=== PATIENT | female | born 1945 | race Caucasian/White ===

== ENCOUNTER 2018-03-18 15:01 | Emergency (ER) | payer MEDICARE, OTHER ==
[~2018-03-18] VITALS: Ht 162.6 cm; Wt 65.8 kg
--- OUTSIDE RECORDS SUMMARY | ~2018-03-18 | XMS | Clinical Summary ---
Demographics + + + | Address | [address] | | | [place] [address] | + + + | Home Phone | | + + + | Preferred Language | Unknown | + + + | Marital Status | Unknown | + + + | Congregational Affiliation | Unknown | + + + | Race | Unknown | + + + | Ethnic Group | Unknown | + + + Author + + + | Author | [facility] | | | and [place] | + + + | Organization | [facility] | | | and [place] | + + + | Address | Unknown | + + + | Phone | Unavailable | + + + Care Team Providers + +------+ + | Care Weekend Anchor Name | Role | Phone | + +------+ + PP | Unavailable | + +------+ + Allergies Not on File Current Medications Not on file Active Problems Not on file Social History + +-------+ +--------+------+ | Tobacco [...] on file | | + + + Plan of Treatment + + + + + | Health Maintenance | Due Date | Last Done | Comments | + + + + + | Vaccine: | | | | | Dtap/Tdap/Td (1 - | 4 | | | | Tdap) | | | | + + + + + | Vaccine: Zoster (1 | | | | | of 2) | 5 | | | + + + + + | Vaccine: | | | | | Pneumococcal 65+ | 0 | | | | Low/Medium Risk (1 | | | | | of 2 - PCV13) | | | | + + + + + | Vaccine: Influenza | | | | | (#1) | 8 | | | + + + + + Results Not on filefrom Last 3 Months"
--- OUTSIDE RECORDS SUMMARY | ~2018-03-18 | XMS | Clinical Summary ---
Demographics + + + | Address | [address] | | | [place] [address] | + + + | Home Phone | | + + + | Preferred Language | Unknown | + + + | Marital Status | | + + + | Congregation Affiliation | Unknown | + + + | Race | Unknown | + + + | Ethnic Group | Unknown | + + + Author + + + | Author | [facility] | + + + | Organization | [facility] | + + + | Address | Unknown | + + + | Phone | Unavailable | + + + Support + + + + + | Name | Relationship | Address | Phone | + + + + + | Prasanna Palumbo | ECON | [address] | | | | | [place] | | | | | [address] | | + + + + + Care Team Providers + +------+ + | Care Giving Officer Name | Role | Phone | + +------+ + | Jaime Proctor DO | PP | | + +------+ + Allergies Not on File Current Medications Not on file Active Problems Not on file Encounters +--------+ + + + + | Date | Type | Specialty | Care Team | Description | +--------+ + + + + | 02/15/ | Documentati | | Mita Mendez MA | Other (ZIO report) | | 2018 | on Only | | | | +--------+ + + + + from Last 3 Months Social History + +-------+ +--------+------+ | Tobacco [...] | + + + Plan of Treatment Not on file Results Not on filefrom Last 3 Months"
--- OUTSIDE RECORDS SUMMARY | ~2018-03-18 | XMS | Encounter Summary ---
Demographics + + + | Address | [address] | | | [place] [address] | + + + | Home Phone | | + + + | Preferred Language | Unknown | + + + | Marital Status | | + + + | Mormon Affiliation | Unknown | + + + | Race | Unknown | + + + | Ethnic Group | Unknown | + + + Author + + + | Author | [facility] | + + + | Organization | [facility] | + + + | Address | Unknown | + + + | Phone | Unavailable | + + + Support + + + + + | Name | Relationship | Address | Phone | + + + + + | Prasanna Palumbo | ECON | [address] | | | | | [place] | | | | | [address] | | + + + + + Care Team Providers + +------+ + | Care Spectacle Truer Name | Role | Phone | + +------+ + | Jaime Proctor DO | PCP | | + +------+ + Reason for Visit +--------+ + | Reason | Comments | +--------+ + | Other | ZIO report | +--------+ + Encounter Details +--------+ + + + + | Date | Type | Department | Care Team | Description | +--------+ + + + + | 02/15/ | Documentati | [facility] | Mita Mendez MA | Other ([facility]IO report) | | 2018 | on Only | Cardiology [facility] | | | | | | [address] | | | | | | [place] | | | | | | [address] | | | | | | [phone] | | | +--------+ + + + [...] on file | | + + + as of this encounter Plan of Treatment Not on fileas of this encounter Visit Diagnoses Not on filein this encounter"
--- OUTSIDE RECORDS SUMMARY | ~2018-03-18 | XMS | Clinical Summary ---
Demographics + + + | Address | [address] | | | [place] [address] | + + + | Home Phone | | + + + | Preferred Language | Unknown | + + + | Marital Status | | + + + | Episcopal Affiliation | Unknown | + + + | Race | Unknown | + + + | Ethnic Group | Unknown | + + + Author + + + | Author | [facility] | + + + | Organization | [facility] | + + + | Address | Unknown | + + + | Phone | Unavailable | + + + Support + + + + + | Name | Relationship | Address | Phone | + + + + + | Prasanna Palumbo | ECON | [address] | | | | | [place] | | | | | [address] | | + + + + + Care Team Providers + +------+ + | Care Synthetic Gem Press Operator Name | Role | Phone | + [...]
--- OUTSIDE RECORDS SUMMARY | ~2018-03-18 | XMS | Encounter Summary ---
Demographics + + + | Address | [address] | | | [place] [address] | + + + | Home Phone | | + + + | Preferred Language | Unknown | + + + | Marital Status | | + + + | Gnosticism Affiliation | Unknown | + + + | Race | Unknown | + + + | Ethnic Group | Unknown | + + + Author + + + | Author | [facility] | + + + | Organization | [facility] | + + + | Address | Unknown | + + + | Phone | Unavailable | + + + Support + + + + + | Name | Relationship | Address | Phone | + + + + + | Prasanna Palumbo | ECON | [address] | | | | | [place] | | | | | [address] | | + + + + + Care Team Providers + +------+ + | Care Contact Lens Curve Grinder Name | Role | Phone | + [...] [place] | | | | | | [address] | | | | | | [phone] | | | +--------+ + + + [...]
--- OUTSIDE RECORDS SUMMARY | ~2018-03-18 | XMS | Clinical Summary ---
Demographics + + + | Address | [address] | | | [place] [address] | + + + | Home Phone | | + + + | Preferred Language | Unknown | + + + | Marital Status | Unknown | + + + | Protestant Affiliation | Unknown | + + + | Race | Unknown | + + + | Ethnic Group | Unknown | + + + Author + + + | Author | [facility] | | | and [place] | + + + | Organization | [facility] | | | and [place] | + + + | Address | Unknown | + + + | Phone | Unavailable | + + + Care Team Providers + +------+ + | Care Day Care Center Director Name | Role | Phone | + [...]
[2018-03-18] MEDS ORDERED: LEVOTHYROXINE75 MCG PO (15:14)
[2018-03-18] MEDS ORDERED: LISINOPRIL20 MG PO (15:14)
[2018-03-18] MEDS ORDERED: PREMPRO 0.3 MG1 EACH PO (15:15)
[2018-03-18] MEDS ORDERED: IBANDRONATE SO150 MG PO (15:16)
[2018-03-18] MEDS ORDERED: MECLIZINE HCL25 MG PO (17:04)
--- NOTE | 2018-03-19 06:50 | EKG ---
[facility] [address] [place], [place] [address] Signed Normal sinus rhythm Left axis deviation Low voltage QRS Inferior infarct , age undetermined Cannot rule out Anteroseptal infarct , age undetermined Abnormal ECG No previous ECGs available Confirmed by MARLA OSWALD MD ([id number]) on 03/19/2018 6:49:48 AM Electronically Signed By: MARLA OSWALD MD 03/19/18 0650 PATIENT NAME: SYDNIEPRAVIN SUE Electrocardiogram DATE OF : 43 PHYSICIAN: MARLA OSWALD MD REPORT #: [id number] REPORT IS CONFIDENTIAL AND NOT TO BE RELEASED WITHOUT AUTHORIZATION
== END 2018-03-18 18:22 | disposition home or self-care (01) ==
LOC: ED 15:01
DX: R42 Dizziness and giddiness (principal); I25.2 Old myocardial infarction; Z88.8 Allergy status to other drugs, medicaments and biological substances; Z79.899 Other long term (current) drug therapy
CPT/HCPCS: 70450; 80053; 81001; 84484; 85025; 93005; 93010; 99284

== ENCOUNTER 2019-10-27 19:00 | Emergency (ER) | payer MEDICARE, OTHER ==
[~2019-10-27] VITALS: Ht 162.6 cm; Wt 63.5 kg
--- OUTSIDE RECORDS SUMMARY | ~2019-10-27 | XMS | Encounter Summary ---
Demographics + + + | Address | [address] | | | [place] [address] | + + + | Home Phone | | + + + | Preferred Language | Unknown | + + + | Marital Status | | + + + | Mormonism Affiliation | Unknown | + + + | Race | Unknown | + + + | Ethnic Group | Unknown | + + + Author + + + | Author | [facility] | | | and [place] | + + + | Organization | [facility] | | | and [place] | + + + | Address | Unknown | + + + | Phone | Unavailable | + + + Support + + + + + | Name | Relationship | Address | Phone | + + + + + | Prasanna Palumbo | ECON | [address] | | | | | [place] | | | | | [address] | | + + + + + Care Team Providers + +------+ + | Care Professional Programmer Analyst Name | Role | Phone | + +------+ + PCP | Unavailable | + +------+ + Encounter Details +--------+ + + + + | Date | Type | Department | Care Team | Description | +--------+ + + + + | 03/18/ | [facility] | [facility] | Rogelio, | [facility] Infrc, Init | | 2007 - | Encounter | [facility] | MD Naheed | Episd ([facility]) | | | | CARE FLOOR [address] | [address] [place] | | | 03/21/ | | [address] | [address] [place], [place] | | | 2006 | | [place], [place] | [address] | | | | | [address] | [phone] | | | | | [phone] | | | +--------+ + + + + Social History + +-------+ +--------+------+ | Tobacco Use | Types | Packs/Day | Years | Date | | | | | Used | | + +-------+ +--------+------+ | Never Assessed | | | | | + +-------+ +--------+------+ + + + | Sex Assigned at | Date Recorded | | | | + + + | Not on file | | + + + + + + + | Job Start Date | Occupation | Industry | + + + + | Not on file | Not on file | Not on file | + + + + + + + + | Travel History | Travel Start | Travel End | + + + + + + | No recent travel history available. | + + documented as of this encounter Plan of Treatment Not on filedocumented as of this encounter Visit Diagnoses + + | Diagnosis | + + | Acute myocardial infarction, subendocardial infarction, initial episode of care (HCC) | | Acute myocardial infarction, subendocardial infarction, initial episode of care | + + documented in this encounter"
--- OUTSIDE RECORDS SUMMARY | ~2019-10-27 | XMS | Encounter Summary ---
Demographics + + + | Address | [address] | | | [place] [address] | + + + | Home Phone | | + + + | Preferred Language | Unknown | + + + | Marital Status | | + + + | Roman Catholic Affiliation | Unknown | + + + | Race | Unknown | + + + | Ethnic Group | Unknown | + + + Author + + + | Author | [facility] | | | and [place] | + + + | Organization | [facility] | | | and [place] | + + + | Address | Unknown | + + + | Phone | Unavailable | + + + Support + + + + + | Name | Relationship | Address | Phone | + + + + + | Prasanna Palumbo | ECON | [address] | | | | | [place] | | | | | [address] | | + + + + + Care Team Providers + +------+ + | Care Contact And Service Clerks Supervisor Name | Role | Phone | + +------+ + | Daphney Peng | PCP | | + +------+ + Reason for Visit + + + | Reason | Comments | + + + | Follow-up | 6 month | + + + Encounter Details +--------+---------+ + + + | Date | Type | Department | Care Team | Description | +--------+---------+ + + + | 04/10/ | Office | [facility] | Dalia Gresham DO | SVT | | 2019 | Visit | CARDIOLOGY [place] | [address] | (supraventricular | | | | [address] | [place], [place] | tachycardia) (HCC) | | | | [address] | [id number] | (Primary Dx); | | | | [place] | | Hypertension, | | | | [address] | | unspecified type; | | | | [phone] | | Dizziness | +--------+---------+ + + + Social History + +-------+ +--------+------+ | Tobacco Use | Types | Packs/Day | Years | Date | | | | | Used | | + +-------+ +--------+------+ | Never Smoker | | | | | + +-------+ +--------+------+ + +---+---+---+ | Smokeless Tobacco: | | | | | Never Used | | | | + +---+---+---+ + + +---------+ + | Alcohol Use | Drinks/Week | oz/Week | Comments | + + +---------+ + | Not Currently | | | | + + +---------+ + + + + | Sex Assigned at [...] + + documented as of this encounter Last Filed Vital Signs + + + + + | Vital Sign | Reading | Time Taken | Comments | + + + + + | Blood Pressure | 136/72 | 04/10/2019 9:35 AM | | | | | PDT | | + + + + + | Pulse | 74 | 04/10/2019 9:35 AM | | | | | PDT | | + + + + + | Temperature | - | - | | + + + + + | Respiratory Rate | - | - | | + + + + + | Oxygen Saturation | 98% | 04/10/2019 9:35 AM | | | | | PDT | | + + + + + | Inhaled Oxygen | - | - | | | Concentration | | | | + + + + + | Weight | 63 kg (139 lb) | 04/10/2019 9:35 AM | | | | | PDT | | + + + + + | Height | 162.6 cm (5' 4") | 04/10/2019 9:35 AM | | | | | PDT | | + + + + + | Body Mass Index | 23.86 | 04/10/2019 9:35 AM | | | | | PDT | | + + + + + documented in this encounter Progress Notes Dalia Gresham DO - 04/10/2019 9:40 AM PDT [facility] Cardiology Cardiology Follow Up Note Reason for Consultation: paroxysmal tachycardia/dizziness Requesting Physician: Jaime Proctor History Obtained From: patient HISTORY OF PRESENT ILLNESS: Cardiac Problem List 1. HTN 2. NSTEMI 2007- cath negative- occurred during a long bike race Non Cardiac Problems 3. CKD 4. Hypothyroidism 5. Osteoporosis Mrs. Palumbo is a very pleasant 72-year-old female who presents to the Cardiology Clinic for dizziness and episodes of SVT which were picked up on recent monitoring. The patient repor ts that she has had episodes of lightheadedness for the past several years. She believes th at the episodes first started about 12 years ago. She describes the episodes as a feeling o f lightheadedness and "like she is going to pass out". She specifically denies any vertigo type symptoms. She has never actually passed out during an episode. They occur quite spora dically. Sometimes she will get them twice daily and sometimes she will go one month withou t getting of these symptoms. She denies any specific triggers. She has had them occur when she hears loud noises, when she goes over a bump in her vehicle, when she is just talking, when she is watching TV. She recently underwent a Zio patch monitor which she wore for thre e days and 11 hours. The patient denies having any of her typical lightheaded spells during monitoring. She reports that they typically last about 10-30 seconds. She has never check ed her pulse during an episode. She reports that when she stops and takes deep breaths, it helps the symptoms pass. She denies any other symptoms when she feels the dizziness, no sylvie st pain, nausea, diaphoresis. On questioning, the patient reports that she had an SC back in 2006. At the time, she was doing a 13-mile bike ride and collapsed. She was brought to the hospital and was found to h ave a positive troponin. Angiogram at that time demonstrated no significant blockages. Ech ocardiogram demonstrated that her ejection fraction was normal. She describes herself as an active person, walking or riding her bike 4 or 5 days per week from anywhere from 30 minutes to 90 minutes at a time. She denies any exertional chest pain or shortness of breath with this activity. She denies any lower extremity swelling, orthop jason or PND. At her visit 04/18/18, we ordered an event monitor which was worn for 14 days as well as a c omplete echocardiogram. The event monitor was notable for a 0.35% burden of supraventricular ectopy with 304 runs of paroxysmal atrial tachycardia the longest of which was 2 minutes 55 seconds at 136BPM, the fastest of which lasted 4 seconds at 166BPM. There were two reported symptoms of lightheadedness and shortness of breath both of which corresponded to normal si nus rhythm. Echocardiogram was notable for EF 65-70%, the right ventricle was normal in size and function, no valvular pathologies. The patient reports that while she was wearing the m onitor, she experienced one of her typical dizzy spells. This correlated to normal sinus rh ythm. Interim History I last saw the patient 6 months ago. Since that time, she reports that she is doing very w ell. She denies any syncopal episodes. Her episodes of lightheadedness have become very sp oradic, occurring about once a month. She reports that they are much more mild than they we re in the past. She recently went on a vacation with her where she visited sites in [place], in [place], including [facility]. She reports that her blood pressure has been we ll controlled at home. She has no other complaints today and is feeling otherwise well. Sh e denies any palpitations. Review of Systems CONSTITUTIONAL: No recent significant weight change, denies recent fever, chills, night sw eats, significant fatigue NEUROLOGIC: No history of CVA, TIA, migraines, seizures, syncope. No dizziness, lighthead edness. No numbness, tingling, paresthesias. EYES: No diplopia, recent visual changes, cataracts or glaucoma. Has macular degeneration. ENT: No hearing loss, tinnitus, epistaxis, dysphagia ENDOCRINE: No history of diabetes. No excessive hunger, thirst. PULMONARY/SLEEP: No dyspnea, orthopnea, paroxysmal nocturnal dyspnea. No history of asthm a, emphysema. No history of pneumonia. Denies significant snoring, daytime somnolence. CARDIOVASCULAR: Denies chest pain, pressure or discomfort. No history of CAD. No history of heart failure. No history of cardiac arrhythmias. No palpitations. No history of a heart murmur, rheumatic fever. No edema, no claudication symptoms. No h/o an AAA. GASTROINTESTINAL: No recent abdominal pain, nausea, vomiting or diarrhea. Denies PUD, meri na, hematochezia, hepatitis. RENAL/: No dysuria, hematuria, urinary urgency, hesitancy. HEMATOLOGY/ONCOLOGY: No h/o bleeding disorders, DVT, PE. Denies easy bruisability or ble eding. No history of anemia, transfusions. No history of cancer. MUSCULOSKELETAL: No myalgias, arthralgias. No history of rheumatologic or autoimmune dise ases. CUTANEOUS: No rashes, pruritus, lesions. PSYCHIATRIC: No history of depression, anxiety or other psychiatric problems. PAST MEDICAL & SURGICAL HISTORY Past Medical History Diagnosis Date Allergic rhinitis Chronic kidney disease Hypertension Hypothyroidism Migraine headache Mitral valve anterior leaflet prolapse Old myocardial infarction Past Surgical History Procedure Laterality Date CATARACT EXTRACTION Right TONSILLECTOMY MEDICATIONS Home Medications Outpatient Encounter Prescriptions as of 10/24/2018 Medication Sig Dispense Refill aspirin 81 MG tablet Take 81 mg by mouth daily. Conj Estrog-Medroxyprogest Basilio (PREMPRO PO) Take 0.3 mg by mouth. ibandronate (BONIVA) 150 MG tablet Take 150 mg by mouth every 30 (thirty) days. Take in the morning with a full glass of water, on an empty stomach, and do not take anything else by mouth or lie down for the next 30 min. levothyroxine (SYNTHROID) 75 MCG tablet Take 75 mcg by mouth every morning before break fast. lisinopril (ZESTRIL) 20 MG tablet Take 40 mg by mouth daily. Multiple Vitamins-Minerals (CENTRUM SILVER PO) Take by mouth. multivitamin-minerals (OCUVITE-LUTEIN) tablet Take 1 tablet by mouth daily. Calcium Citrate-Vitamin D (CALCIUM CITRATE + D3) 250-200 MG-UNIT TABS Take by mouth. vitamin E 400 UNIT capsule Take 400 Units by mouth daily. No facility-administered encounter medications on file as of 10/24/2018. Allergies Not on File FAMILY HISTORY Family History Problem Relation Age of Onset Heart attack Father SOCIAL HISTORY - 3 children Social History Social History Marital status: Spouse name: N/A Number of children: N/A Years of education: N/A Occupational History Not on file. Social History Main Topics Smoking status: Never Smoker Smokeless tobacco: Never Used Alcohol use No Drug use: No Sexual activity: Not on file Other Topics Concern Not on file Social History Narrative No narrative on file PHYSICAL EXAM Vitals: 04/10/19 0935 BP: 136/72 Pulse: 74 PainSc: 0 - No pain PainLoc: Chest Physical Exam GENERAL: Well developed, well nourished, in no distress. Appears approximately stated age . HEENT: Normocephalic, atraumatic. EYES: PERRL, sclerae anicteric, no xanthelsasmas NECK: No JVD, lymphadenopathy, thyromegaly, bruits. Carotid pulses are 2+ bilaterally LUNGS: Clear bilaterally, with no rales, rhonchi or wheezing noted, respirations unlabored HEART: Nondisplaced PMI, regular rate and rhythm, S1, S2 normal. No murmurs, rubs or gall ops noted. ABDOMEN: Soft, nontender, no organomegaly, masses or bruits. Bowel sounds are normal in a ll 4 quadrants. The abdominal aortic pulsation is not palpable. EXTREMITIES: No edema. Radial pulses 2+ bilaterally. Femoral pulses are 2+ bilaterally wi thout bruits. DP and PT pulses are 2+ bilaterally. SKIN: Warm and dry, capillary refill is normal, no lesions. NEUROLOGIC: Awake, alert and oriented x 3. No focal motor deficits. PSYCHIATRIC: Appropriate, affect appears normal DATA The patient's blood work from 03/18/2018 were reviewed, including a white blood cell count of 3.8, hemoglobin 13, hematocrit 40.1, platelet count 252, creatinine 0.99, GFR 55, sodium 140, potassium 3.9, chloride 109, carbon dioxide 23, calcium 8.7, total protein 6.8, AST 17, ALT 10, total bilirubin 0.4, alkaline phosphatase 74. EK04/18/18 Ordered and reviewed by myself NSR 65 bpm, inferior q waves, poor r wave progression Last Echo: 05/01/18 CONCLUSIONS 1. Left ventricular is normal in size, wall thickness and systolic function EF 65-70%. 2. The right ventricle is normal in size and function. 3. No significant valvular pathology. 4. There is no pericardial effusion. 2006 thickened mitral leaflets, probably mitral valve prolapse, normal left ventricular f unction Last cath: 03/2007 CONCLUSION 1. Very minimal coronary artery disease, discloses involvement of the distal left anterior descending. 2. Good left ventricular function. 3. Normal hemodynamics. 4. Normal left ventricular end-diastolic pressure. Carotid US: 04/17/18 normal OTHERS: Zio 8/15- 1 for 3 days and 11 hours, average heart rate 71 bpm, 48-1 30 bpm, 48 episodes of paroxysmal supraventricular tachycardia, longest was 25 seconds, fastest was 14 seconds wit h a maximum rate of 200 bpm. 04/29/18 CONCLUSION: 1: Predominant rhythm is normal sinus rhythm, as described above. 2: There was a 0.35% burden of supraventricular ectopy with 304 runs of paroxysmal atrial t achycardia the longest of which was 2 minutes 55 seconds at 136BPM, the fastest of which las raina 4 seconds at 166BPM. 3: No AV conduction abnormalities detected. 4: No ischemia detected. 5: There were two reported symptoms of lightheadedness and shortness of breath, both associ ated with normal sinus rhythm. Recomendations: Clinical correlation suggested. ASSESSMENT & PLAN 1. Presyncope 2. Paroxysmal SVT 3. HTN - Mrs. Vallejo is a 72-year-old female who presents to the cardiology clinic for follow up for supraventricular tachycardia and lightheadedness. I ordered an event monitor during whi ch she had replication of one of her typical dizzy spells which corresponded to normal sinus rhythm. She also had some intermittent SVT which she was asymptomatic of. An echocardiogram was done as well which was unremarkable. Her lightheadedness has improved over the past few months with increased hydration and reduction of her soft drink consumption. She continues to do well with minimal symptoms, her BP appears well controlled. - She was instructed to regularly check her blood pressures at home. - She was advised to stay well hydrated throughout the day and wear compression stockings. - Follow up with cardiology as needed Thank you for allowing me to participate in the care of this patient. Primary Care Physician: Daphney Gresham DO documented in this enco unter Plan of Treatment Not on filedocumented as of this encounter Visit Diagnoses + + | Diagnosis | + + | SVT (supraventricular tachycardia) (HCC) - Primary Other specified cardiac | | dysrhythmias | + + | Hypertension, unspecified type | + + | Dizziness Dizziness and giddiness | + + documented in this encounter
--- OUTSIDE RECORDS SUMMARY | ~2019-10-27 | XMS | Encounter Summary ---
Demographics + + + | Address | [address] | | | [place] [address] | + + + | Home Phone | | + + + | Preferred Language | Unknown | + + + | Marital Status | | + + + | Yazidism Affiliation | Unknown | + + + | Race | Unknown | + + + | Ethnic Group | Unknown | + + + Author + + + | Author | [facility] | | | and [place] | + + + | Organization | [facility] | | | and [place] | + + + | Address | Unknown | + + + | Phone | Unavailable | + + + Support + + + + + | Name | Relationship | Address | Phone | + + + + + | Prasanna Palumbo | ECON | [address] | | | | | [place] | | | | | [address] | | + + + + + Care Team Providers + +------+ + | Care Coremaker Pipe Name | Role | Phone | + +------+ + PCP | Unavailable | + +------+ + Encounter Details +--------+ + + + + | Date | Type | Department | Care Team | Description | +--------+ + + + + | 10/16/ | Hospital | [facility] | | | | 1999 | Encounter | MED CTR GENERIC OP | | | | | | CONV DEPT [address] | | | | | | [place], | | | | | | [place] [address] | | | | | | [phone] | | | +--------+ + + + [...] filedocumented as of this encounter Visit Diagnoses Not on filedocumented in this encounter"
--- OUTSIDE RECORDS SUMMARY | ~2019-10-27 | XMS | Encounter Summary ---
Demographics + + + | Address | [address] | | | [place] [address] | + + + | Home Phone | | + + + | Preferred Language | Unknown | + + + | Marital Status | | + + + | Tenriism Affiliation | Unknown | + + + | Race | Unknown | + + + | Ethnic Group | Unknown | + + + Author + + + | Author | [facility] | | | and [place] | + + + | Organization | [facility] | | | and [place] | + + + | Address | Unknown | + + + | Phone | Unavailable | + + + Support + + + + + | Name | Relationship | Address | Phone | + + + + + | Prasanna Palumbo | ECON | [address] | | | | | [place] | | | | | [address] | | + + + + + Care Team Providers + +------+ + | Care Cyber Intel Planner Name | Role | Phone | + [...] + + | 04/10/ | Office | [facility] | Dalia Gresham DO | SVT | | 2019 | Visit | CARDIOLOGY [place] | [address] | (supraventricular | | | | [address] | [place], [place] | tachycardia) (HCC) | | | | [address] | [address] | (Primary Dx); | | | | [place] | | Hypertension, | | | | [address] | | unspecified type; | | | | [phone] | | Dizziness | +--------+---------+ + + [...] Gresham DO - 04/10/2019 9:40 AM PDT [facility] Cardiology Cardiology Follow Up Note Reason [...] the patient reports that she had an ND back in 2006. At the time, she [...] with her where she visited sites in [place], in [place], including [facility]. She reports that her blood pressure [...]
--- OUTSIDE RECORDS SUMMARY | ~2019-10-27 | XMS | Encounter Summary ---
Demographics + + + | Address | [address] | | | [place] [address] | + + + | Home Phone | | + + + | Preferred Language | Unknown | + + + | Marital Status | | + + + | Uatsdin Affiliation | Unknown | + + + | Race | Unknown | + + + | Ethnic Group | Unknown | + + + Author + + + | Author | [facility] | | | and [place] | + + + | Organization | [facility] | | | and [place] | + + + | Address | Unknown | + + + | Phone | Unavailable | + + + Support + + + + + | Name | Relationship | Address | Phone | + + + + + | Prasanna Palumbo | ECON | [address] | | | | | [place] | | | | | [address] | | + + + + + Care Team Providers + +------+ + | Care Telephone Directory Deliverer Name | Role | Phone | + +------+ + | Daphney Peng | PCP | | + +------+ + Encounter Details +--------+ + + + + | Date | Type | Department | Care Team | Description | +--------+ + + + + | 04/10/ | Orders Only | [facility] GENERIC OP | Conversion | | | 2018 | | CONVERSION DEP [address] | Transaction, | | | | | [address] | Provider Unknown | | | | | [place], [place] | [phone] | | | | | [address] | | | | | | [phone] | | | +--------+ + + + [...]
--- OUTSIDE RECORDS SUMMARY | ~2019-10-27 | XMS | Encounter Summary ---
Demographics + + + | Address | [address] | | | [place] [address] | + + + | Home Phone | | + + + | Preferred Language | Unknown | + + + | Marital Status | | + + + | Moravian Affiliation | Unknown | + + + | Race | Unknown | + + + | Ethnic Group | Unknown | + + + Author + + + | Author | [facility] | | | and [place] | + + + | Organization | [facility] | | | and [place] | + + + | Address | Unknown | + + + | Phone | Unavailable | + + + Support + + + + + | Name | Relationship | Address | Phone | + + + + + | Prasanna Palumbo | ECON | [address] | | | | | [place] | | | | | [address] | | + + + + + Care Team Providers + +------+ + | Care Land Acquisition Manager Name | Role | Phone | + +------+ + PCP | Unavailable | + +------+ + Encounter Details +--------+ + + + + | Date | Type | Department | Care Team | Description | +--------+ + + + + | 03/16/ | Hospital | [facility] | [place], | | | 2006 - | Encounter | MED CTR ICU [address] | Asiya Reed MD [address] | | | | | [place], | [address] [place] | | | 03/18/ | | [place] [address] | [place] [address] | | | 2006 | | [phone] | [phone] | | | | | | | | +--------+ + + [...]
--- OUTSIDE RECORDS SUMMARY | ~2019-10-27 | XMS | Encounter Summary ---
Demographics + + + | Address | [address] | | | [place] [address] | + + + | Home Phone | | + + + | Preferred Language | Unknown | + + + | Marital Status | | + + + | Jew Affiliation | Unknown | + + + | Race | Unknown | + + + | Ethnic Group | Unknown | + + + Author + + + | Author | [facility] | | | and [place] | + + + | Organization | [facility] | | | and [place] | + + + | Address | Unknown | + + + | Phone | Unavailable | + + + Support + + + + + | Name | Relationship | Address | Phone | + + + + + | Prasanna Palumbo | ECON | [address] | | | | | [place] | | | | | [address] | | + + + + + Care Team Providers + +------+ + | Care Marine Air Ground Task Force Planners Name | Role | Phone | + +------+ + PCP | Unavailable | + +------+ + Encounter Details +--------+ + + + + | Date | Type | Department | Care Team | Description | +--------+ + + + + | 03/18/ | [facility] | [facility] | Rogelio, | Subendo Infrc, Init | | 2007 - | Encounter | [facility] | MD Naheed | Episd ([facility]) | | | | CARE FLOOR [address] | [address] | | | 03/21/ | | [address] | [address] [place], [place] | | | 2006 | | [place], [place] | [address] | | | | | [address] | [phone] | | | | | [phone] | | | +--------+ + + + [...]
--- OUTSIDE RECORDS SUMMARY | ~2019-10-27 | XMS | Encounter Summary ---
Demographics + + + | Address | [address] | | | [place] [address] | + + + | Home Phone | | + + + | Preferred Language | Unknown | + + + | Marital Status | | + + + | Hindu Affiliation | Unknown | + + + | Race | Unknown | + + + | Ethnic Group | Unknown | + + + Author + + + | Author | [facility] | | | and [place] | + + + | Organization | [facility] | | | and [place] | + + + | Address | Unknown | + + + | Phone | Unavailable | + + + Support + + + + + | Name | Relationship | Address | Phone | + + + + + | Prasanna Palumbo | ECON | [address] | | | | | [place] | | | | | [address] | | + + + + + Care Team Providers + +------+ + | Care Wire Basket Maker Name | Role | Phone | + [...] W | | | | | | [place], | | | | | | [place] [address] | | | | | | [phone] | | | +--------+ + + + [...]
--- OUTSIDE RECORDS SUMMARY | ~2019-10-27 | XMS | Encounter Summary ---
Demographics + + + | Address | [address] | | | [place] [address] | + + + | Home Phone | | + + + | Preferred Language | Unknown | + + + | Marital Status | | + + + | Evangelical Affiliation | Unknown | + + + | Race | Unknown | + + + | Ethnic Group | Unknown | + + + Author + + + | Author | [facility] | | | and [place] | + + + | Organization | [facility] | | | and [place] | + + + | Address | Unknown | + + + | Phone | Unavailable | + + + Support + + + + + | Name | Relationship | Address | Phone | + + + + + | Prasanna Palumbo | ECON | [address] | | | | | [place] | | | | | [address] | | + + + + + Care Team Providers + +------+ + | Care Medical Affairs Leader Name | Role | Phone | + +------+ + | Daphney Peng | PCP | | + +------+ + Encounter Details +--------+ + + + + | Date | Type | Department | Care Team | Description | +--------+ + + + + | 04/15/ | Orders Only | [facility] GENERIC OP | Conversion | | | 2018 | | CONVERSION DEP [address] | Transaction, | | | | | [address] | Provider Unknown | | | | | [place], [place] | [phone] | | | | | [address] | | | | | | [phone] | | | +--------+ + + + [...]
--- OUTSIDE RECORDS SUMMARY | ~2019-10-27 | XMS | Encounter Summary ---
Demographics + + + | Address | [address] | | | [place] [address] | + + + | Home Phone | | + + + | Preferred Language | Unknown | + + + | Marital Status | | + + + | Samaritan Affiliation | Unknown | + + + [...] + | Prasanna Palumbo | ECON | [address] | | | | | [place] | | | | | [address] | | + + + + + Care Team Providers + +------+ + | Care International Freight Forwarder Name | Role | Phone | + [...] Provider Unknown | | | | | [place], [place] | [phone] | | | | | [address] | | | | | | [phone] | | | +--------+ + + + [...]
--- OUTSIDE RECORDS SUMMARY | ~2019-10-27 | XMS | Clinical Summary ---
Demographics + + + | Address | [address] | | | [place] [address] | + + + | Home Phone | | + + + | Preferred Language | Unknown | + + + | Marital Status | | + + + | Denominational Affiliation | Unknown | + + + | Race | Unknown | + + + | Ethnic Group | Unknown | + + + Author + + + | Author | [facility] | | | and [place] | + + + | Organization | [facility] | | | and [place] | + + + | Address | Unknown | + + + | Phone | Unavailable | + + + Support + + + + + | Name | Relationship | Address | Phone | + + + + + | Prasanna Palumbo | ECON | [address] | | | | | [place] | | | | | [address] | | + + + + + Care Team Providers + +------+ + | Care Slicing Machine Tender Name | Role | Phone | + +------+ + | Daphney Peng | PCP | | + +------+ + Allergies + + + + + + | Active Allergy | Reactions | Severity | Noted | Comments | | | | | Date | | + + + + + + | Beta Adrenergic | Other (See Comments) | Medium | 04/10/20 | Vasovagel response | | Blockers | | | 19 | | + + + + + + Medications + + + +---------+------+------+-------+ | Medication | Sig | Dispensed | Refills | Star | End | Statu | | | | | | t | Date | s | | | | | | Date | | | + + + +---------+------+------+-------+ | Conj | Take 0.3 mg by | | 0 | 03/19 | | Activ | | Estrog-Medroxyproges | mouth. | | | 10/05 | | e | | t Basilio (PREMPRO PO) | | | | 18 | | | + + + +---------+------+------+-------+ | lisinopril | Take 40 mg by mouth | | 0 | 10/2 | | Activ | | (PRINIVIL, ZESTRIL) | daily. | | | 4/20 | | e | | 20 mg tablet | | | | 18 | | | + + + +---------+------+------+-------+ | ibandronate | Take 150 mg by mouth | | 0 | 10/2 | | Activ | | (BONIVA) 150 mg | every 30 (thirty) | | | 4/20 | | e | | tablet | days. Take in the | | | 18 | | | | | morning with a full | | | | | | | | glass of water, on | | | | | | | | an empty stomach, | | | | | | | | and do not take | | | | | | | | anything else by | | | | | | | | mouth or lie down | | | | | | | | for the next 30 min. | | | | | | + + + +---------+------+------+-------+ | aspirin 81 MG | Take 81 mg by mouth | | 0 | 10/2 | | Activ | | tablet | daily. | | | 4/20 | | e | | | | | | 18 | | | + + + +---------+------+------+-------+ | Multiple | Take 1 tablet by | | 0 | 10/2 | | Activ | | Vitamins-Minerals | mouth daily. | | | 10/05 | | e | | (MULTIPLE VITAMINS | | | | 18 | | | | W/MINERALS) TABS | | | | | | | + + + +---------+------+------+-------+ | levothyroxine | Take 75 mcg by mouth | | 0 | 10/2 | | Activ | | (SYNTHROID) 75 MCG | every morning | | | 03/07 | | e | | tablet | before breakfast. | | | 18 | | | + + + +---------+------+------+-------+ Active Problems + + + | Problem | Noted Date | + + + | SVT (supraventricular tachycardia) | 04/18/2018 | + + + | Dizziness | 04/18/2018 | + + + | HTN (hypertension) | 04/18/2018 | + + + | Mitral valve prolapse | 04/18/2018 | + + + Family History + + +------+ + | Medical History | Relation | Name | Comments | + + +------+ + | Heart attack | Father | | | + + +------+ + + +------+ + + | Relation | Name | Status | Comments | + +------+ + + | Father | | | | + +------+ + + | Father | | | | + +------+ + + | Mother | | | | + +------+ + + Social History + +-------+ +--------+------+ [...] recent travel history available. | + + Last Filed Vital Signs + + + [...] | | + + + + + Plan of Treatment + + + + + | Health Maintenance | Due Date | Last Done | Comments | + + + + + | Hepatitis C | | | | | Screening | 5 | | | + + + + + | Vaccine: | | | | | Dtap/Tdap/Td (1 - | 6 | | | | Tdap) | | | | + + + + + | Colorectal Cancer | | | | | Screening | 5 | | | | (Colonoscopy) | | | | + + + + + | Vaccine: Zoster (1 | | | | | of 2) | 5 | | | + + + + + | Breast Cancer | | | | | Screening | 0 | | | + + + + + | Vaccine: | | | | | Pneumococcal 65+ (1 | 0 | | | | of 2 - PCV13) | | | | + + + + + | Adult Annual | | | | | Wellness Visit | 9 | | | + + + + + | Statin Therapy | | | | | (optimal intensity) | 9 | | | + + + + + | Vaccine: Influenza | | | | | (Season Ended) | 0 | | | + + + + + Results Not on filefrom Last 3 Months Insurance + +--------+ +--------+ + +--------+ | Payer | Benefi | Subscriber | Effect | Phone | Address | Type | | | t Plan | ID | [place] | | | | | | / | | Dates | | | | | | Group | | | | | | + +--------+ +--------+ + +--------+ | MEDICARE | MEDICA | [id number] | 08/17/19 | [phone] | | Medica | | | RE | | 10-Pre | 5 | | re | | | PART A | | sent | | | | | | AND B | | | | | | + +--------+ +--------+ + +--------+ | MODA | MODA | [id number] | 06/18/19 | [phone] | [address] | Indemn | | | HEALTH | | 19-Pre | 9 | [address] | ity | | | MDCR | | sent | | [place], | | | | [place] | | | | [place] [address] | | + +--------+ +--------+ + +--------+ + +--------+ +--------+ + + | Guarantor Name | Accoun | Relation to | Date | Phone | Billing Address | | | t Type | Patient | of | | | | | | | | | | + +--------+ +--------+ + + | Jerilyn Palumbo | Person | Self [birth year] | [address] | | | al/Fam | | 1946 | [phone] | [place] | | | [place] | | | 2 (Home) | [address] | + +--------+ +--------+ + + Advance Directives + + + + + | Type | Date Recorded | Patient | Explanation | | | | Personnel Officer | | + + + + + | Power of | | | | | [facility]pn Home [facility] | | | | + + + + + | Advance | | | | | Directive | | | | + + + + +
--- OUTSIDE RECORDS SUMMARY | ~2019-10-27 | XMS | Clinical Summary ---
Demographics + + + | Address | [address] | | | [place] [address] | + + + | Home Phone | | + + + | Preferred Language | Unknown | + + + | Marital Status | | + + + | Alevism Affiliation | Unknown | + + + | Race | Unknown | + + + | Ethnic Group | Unknown | + + + Author + + + | Author | [employer] (Historical as of | | | 02-01-19) | + + + | Organization | [facility] [facility] (Historical as of | | | 02-01-19) | + + + | Address | Unknown | + + + | Phone | Unavailable | + + + Support + + + + + | Name | Relationship | Address | Phone | + + + + + | Prasanna Palumbo | ECON | [address] | | | | | [place] | | | | | [address] | | + + + + + Care Team Providers + +------+ + | Care Tenon Machine Operator Name | Role | Phone | + +------+ + | Daphney Peng PA-C | PP | | + +------+ + Allergies Not on File Current Medications + + +-------+---------+------+------+-------+ | Prescription | Sig. | Disp. | Refills | Star | End | Statu | | | | | | t | Date | s | | | | | | Date | | | + + +-------+---------+------+------+-------+ | lisinopril | Take 40 mg by mouth | | | | | Activ | | (ZESTRIL) 20 MG | daily. | | | | | e | | tablet | | | | | | | + + +-------+---------+------+------+-------+ | ibandronate | Take 150 mg by mouth | | | | | Activ | | (BONIVA) 150 MG | every 30 (thirty) | | | | | e | | tablet | days. Take in the | | | | | | | | morning with [...] | | | | | + + +-------+---------+------+------+-------+ | aspirin 81 MG | Take 81 mg by mouth | | | | | Activ | | tablet | daily. | | | | | e | + + +-------+---------+------+------+-------+ | | Take 1 tablet by | | | | | Activ | | multivitamin-mineral | mouth daily. | | | | | e | | s (OCUVITE-LUTEIN) | | | | | | | | tablet | | | | | | | + + +-------+---------+------+------+-------+ | Conj | Take 0.3 mg by | | | | | Activ | | Estrog-Medroxyproges | mouth. | | | | | e | | t Basilio (PREMPRO PO) | | | | | | | + + +-------+---------+------+------+-------+ | Multiple | Take by mouth. | | | | | Activ | | Vitamins-Minerals | | | | | | e | | (CENTRUM SILVER PO) | | | | | | | + + +-------+---------+------+------+-------+ | levothyroxine | Take 75 mcg by mouth | | | | | Activ | | (SYNTHROID) 75 MCG | every morning | | | | | e | | tablet | before breakfast. | | | | | | + + +-------+---------+------+------+-------+ Active Problems + + + | Problem | Noted Date | + + + | SVT (supraventricular tachycardia) (HCC) | 04/18/2018 | + + + | [...] + +---------+ + | Alcohol Use | Drinks/We | oz/Week | Comments | | | ek | | | + + +---------+ + | No | | | | + + +---------+ + + + + | Sex Assigned at | Date Recorded | | | | + + + | Not on file | | + + + Last Filed Vital Signs + + + + | Vital Sign | Reading | Time Taken | + + + + | Blood Pressure | 122/78 | 10/24/2018 9:03 AM PDT | + + + + | Pulse | 75 | 10/24/2018 9:03 AM PDT | + + + + | Temperature | - | - | + + + + | Respiratory Rate | - | - | + + + + | Oxygen Saturation | 97% | 10/24/2018 9:03 AM PDT | + + + + | Inhaled Oxygen | - | - | | Concentration | | | + + + + | Weight | 62.7 kg (138 lb 3.2 | 10/24/2018 9:03 AM PDT | | | oz) | | + + + + | Height | 162.6 cm (5' 4") | 10/24/2018 9:03 AM PDT | + + + + | Body Mass Index | 23.72 | 10/24/2018 9:03 AM PDT | + + + + Plan of Treatment + + + + + | Health Maintenance | Due Date | Last Done | Comments | + + + + + | Vaccine: | | | | | Dtap/Tdap/Td (1 - | 4 | | | | Tdap) | | | | + + + + + | Colon Cancer | | | | | Screening | 5 | | | | (Colonoscopy) | | | | + + + + + | Vaccine: Zoster (1 | | | | | of 2) | 5 | | | + + + + + | DEXA SCAN SCREENING | | | | | | 0 | | | + + + + + | Vaccine: | | | | | Pneumococcal 65+ | 0 | | | | Low/Medium Risk (1 | | | | | of 2 - PCV13) | | | | + + + + + | Statin Therapy | | | | | (optimal intensity) | 8 | | | + + + + + | Vaccine: Influenza | | | | | (Season Ended) | 0 | | | + + + + + Results Not on filefrom Last 3 Months Insurance + +--------+ +------+-------+ + | Payer | Benefi | Subscriber | Type | Phone | Address | | | t Plan | ID | | | | | | / | | | | | | | Group | | | | | + +--------+ +------+-------+ + | MEDICARE | MEDICA | [id number] | | | [address] | | | RE | | | | [place] [address] | | | IP-OP | | | | | + +--------+ +------+-------+ + | ODS HE[employer] PLAN | ODS | [id number] | | | | | | HEALTH | | | | | | | PLAN | | | | | + +--------+ +------+-------+ + + +--------+ +--------+ + + | Guarantor Name | Accoun | Relation to | Date | Phone | Billing Address | | | t Type | Patient | of | | | | | | | | | | + +--------+ +--------+ + + | PRAVIN PALUMBO | Person | Self | [birth year] | Home: | [address] | | | al/Fam | | 1946 | [phone] [place] | | | [place] | | | [phone] | [phone] | + +--------+ +--------+ + +
--- OUTSIDE RECORDS SUMMARY | ~2019-10-27 | XMS | Clinical Summary ---
Demographics + + + | Address | [address] | | | [place] [address] | + + + | Home Phone | | + + + | Preferred Language | Unknown | + + + | Marital Status | | + + + | Mormon Affiliation | Unknown | + + + | Race | Unknown | + + + | Ethnic Group | Unknown | + + + Author + + + | Author | [employer] (Historical as of | | | 02-01-19) | + + + | Organization | [facility] (Historical as of | | | 02-01-19) | + + + | Address | Unknown | + + + | Phone | Unavailable | + + + Support + + + + + | Name | Relationship | Address | Phone | + + + + + | Prasanna Palumbo | ECON | [address] | | | | | [place] | | | | | [address] | | + + + + + Care Team Providers + +------+ + | Care Usability Strategist Name | Role | Phone | + [...] +------+-------+ + | MEDICARE | MEDICA | [id number] | | | [address] | | | RE | | | | [place] [address] | | | IP-OP | | | | | + +--------+ +------+-------+ + | ODS HEALTH PLAN | ODS | [id number] | | | | | | HEALTH [...] | Self | [birth year] | Home: | [address] | | | al/Fam | | 1946 | [phone] [place] | | | [place] | | | [phone] | [address] | + +--------+ +--------+ + +
--- OUTSIDE RECORDS SUMMARY | ~2019-10-27 | XMS | Encounter Summary ---
Demographics + + + | Address | [address] | | | [place] [address] | + + + | Home Phone | | + + + | Preferred Language | Unknown | + + + | Marital Status | | + + + | Baptist Affiliation | Unknown | + + + | Race | Unknown | + + + | Ethnic Group | Unknown | + + + Author + + + | Author | [facility] | | | and [place] | + + + | Organization | [facility] | | | and [place] | + + + | Address | Unknown | + + + | Phone | Unavailable | + + + Support + + + + + | Name | Relationship | Address | Phone | + + + + + | Prasanna Palumbo | ECON | [address] | | | | | [place] | | | | | [address] | | + + + + + Care Team Providers + +------+ + | Care Blister Packaging Machine Operator Name | Role | Phone | + +------+ + PCP | Unavailable | + +------+ + Encounter Details +--------+ + + + + | Date | Type | Department | Care Team | Description | +--------+ + + + + | 03/16/ | Hospital | [facility] | [place], | | | 2006 - | Encounter | MED CTR ICU [address] | Asiya Reed MD [address] | | | | | [place], | [address] [place] | | | 03/18/ | | [place] [address] | [place] [address] | | | 2006 | | [phone] | [phone] | | | | | | | [...]
--- OUTSIDE RECORDS SUMMARY | ~2019-10-27 | XMS | Encounter Summary ---
Demographics + + + | Address | [address] | | | [place] [address] | + + + | Home Phone | | + + + | Preferred Language | Unknown | + + + | Marital Status | | + + + | Rastafari Affiliation | Unknown | + + + | Race | Unknown | + + + | Ethnic Group | Unknown | + + + Author + + + | Author | [facility] | | | and [place] | + + + | Organization | [facility] | | | and [place] | + + + | Address | Unknown | + + + | Phone | Unavailable | + + + Support + + + + + | Name | Relationship | Address | Phone | + + + + + | Prasanna Palumbo | ECON | [address] | | | | | [place] | | | | | [address] | | + + + + + Care Team Providers + +------+ + | Care Supervisor Landscape Name | Role | Phone | + +------+ + | Daphney Peng | PCP | | + +------+ + Encounter Details +--------+ + + + + | Date | Type | Department | Care Team | Description | +--------+ + + + + | 05/01/ | Orders Only | [facility] | GreshamDalia hurtado DO | | | 2018 | | CONVERSION [address] | [address] | | | | | [address] | [place], [place] | | | | | [place], [place] | [address] | | | | | [address] | | | | | | [phone] | | | +--------+ + + + [...] Not on filedocumented as of this encounter Procedures + +--------+ + + + | Procedure Name | Priori | Date/Time | Associated Diagnosis | Comments | | | ty | | | | + +--------+ + + + | ECHO INTERPRETATION | Routin | 05/01/2018 | | Results for this | | OF OUTSIDE FILMS | e | 4:21 PM | | procedure are in the | | | | PST | | results section. | + +--------+ + + + documented in this encounter Results ECHO Interpretation of Outside Films (05/01/2018 4:21 PM PST) + + | Specimen | + + | | + + + + + | Impressions | Performed At | + + + | 1. Left ventricular is normal in size, wall thickness and systolic | | | function EF 65-70%. 2. The right ventricle is normal in size and | | | function. 3. No significant valvular pathology. 4. There is no | | | pericardial effusion. | | + + + + + + | Narrative | Performed At | + + + | Patient Name: Jerilyn Palumbo Date of : 1945 | | | Performing Physician: Jg Prater | | | | | | INDICATIONS Paroxysmal Tachycardia CONCLUSIONS | | | 1. Left ventricular is normal in size, wall thickness and | | | systolic function EF 65-70%. 2. The right ventricle is normal in | | | size and function. 3. No significant valvular pathology. 4. There is | | | no pericardial effusion. FINDINGS -------- ECG rhythm: Sinus | | | rhythm. Study: A 2-dimensional transthoracic echocardiogram with | | | m-mode, spectral and color flow Doppler was perfomed. Study: This was | | | a technically adequate study. Left Ventricle: Overall left | | | ventricular systolic function is normal with, an EF between 65 - 70 %. | | | Left Ventricle: The left ventricle cavity size is normal. Left | | | Ventricle: Left ventricular wall thickness is normal. Left Ventricle: | | | No regional wall motion abnormalities. Right Ventricle: The right | | | ventricle is normal in size and function. Left Atrium: The left | | | atrium is normal in size. Right Atrium: The right atrium is normal in | | | size. Aortic Valve: There is mild aortic valve sclerosis without | | | stenosis. Aortic Valve: There is no evidence of aortic regurgitation. | | | Aortic Valve: Aortic valve is trileaflet and is mildly thickened. | | | Mitral Valve: There is trace mitral regurgitation. Tricuspid Valve: | | | The tricuspid valve appears structurally normal. Tricuspid Valve: | | | Trace tricuspid regurgitation present. Tricuspid Valve: There is no | | | evidence of pulmonary hypertension. Tricuspid Valve: The right | | | ventricular systolic pressure (pulmonary artery systolic pressure), as | | | measured by Doppler, is 22.93mmHg. Pulmonic Valve: The pulmonic | | | valve is normal. Pulmonic Valve: Trace pulmonic regurgitation. | | | Pulmonic Valve: No significant valvular pathology. Pericardium: There | | | is no pericardial effusion. Pericardium: No pleural effusion seen. | | | IVC/Hepatic Veins: The IVC is normal size (1.5-2.5cm) and collapses | | | >50% with sniff, consistent with central venous pressures of 5-10mmHg. | | | Aorta: The aortic root, ascending aorta and aortic arch are normal | | | in size. Septum: Mobile interatrial septum. MEASUREMENTS | | | Ao asc: 2.93 cm Ao Diam: 3.[address] junct: | | | 2.75 cm IVC: 1.65 cm LA Diam: 3.26 cm LA Major: 3.53 cm | | | EDV(Teich): 96.51 ml IVSd: 0.93 cm LVIDd: 4.58 cm LVPWd: | | | 0.74 cm LVOT Area: 3.27 cm2 LVOT Diam: 2.04 cm %FS: | | | 40.06 % EF(Teich): 70.78 % ESV(Teich): 28.19 ml LVIDs: | | | 2.74 cm SV(Teich): 68.31 ml RA Major: 4.02 cm RV Major: | | | 5.54 cm RVIDd: 1.95 cm TV Kaylah Diam: 2.67 cm Ao Root: 2.74 | | | cm Ao Diam SVals: 2.97 cm LVEF MOD A2C: 73.05 % SV MOD A2C: | | | 52.03 ml LVEF MOD A4C: 67.66 % SV MOD A4C: 52.94 ml EF | | | Biplane: 69.26 % LVEDV MOD BP: 73.82 ml LVESV MOD BP: 22.68 | | | ml LVEDV MOD A2C: 71.22 ml LVLd A2C: 6.65 cm LVEDV MOD A4C: | | | 78.25 ml LVLd A4C: 6.73 cm LVESV MOD A2C: 19.19 ml LVLs | | | A2C: 5.55 cm LVESV MOD A4C: 25.30 ml LVLs A4C: 6.04 cm | | | LAESV(A-L): 26.51 ml LAESV Index (A-L): 15.96 ml/m2 LAAs A2C: | | | 11.11 cm2 LAESV A-L A2C: 25.10 ml LALs A2C: 4.17 cm LAAs | | | A4C: 10.71 cm2 LAESV A-L A4C: 25.57 ml LALs A4C: 3.81 cm | | | RAAs: 9.58 cm2 RAESV A-L: 20.03 ml RAESV MOD: 20.09 ml | | | RALs: 3.89 cm TAPSE: 2.01 cm AV maxP.79 mmHg AV | | | meanP.27 mmHg AV Vmax: 1.20 m/s AV Vmean: 0.86 m/s AV | | | VTI: 24.91 cm ANTONIO Vmax: 2.98 cm2 ANTONIO (VTI): 2.95 cm2 LVOT | | | maxP.82 mmHg LVOT meanP.14 mmHg LVSI Dopp: 44.42 | | | ml/m2 LVSV Dopp: 73.74 ml LVOT Vmax: 1.09 m/s LVOT Vmean: | | | 0.65 m/s LVOT VTI: 22.51 cm MV A Girma: 0.93 m/s MV Dec Chase: | | | 3.37 m/s2 MV DecT: 221.52 ms MV E Girma: 0.74 m/s MV E/A | | | Ratio: 0.79 MV PHT: 64.24 ms MVA By PHT: 3.42 cm2 Septal | | | e': 0.05 m/s Septal E/e': 12.55 Lateral e': 0.04 m/s | | | Lateral E/e': 17.35 RAP: 5 mmHg RVSP: 22.93 mmHg TR maxPG: | | | 17.93 mmHg TR Vmax: 2.11 m/s Software Support Specialist: WALT | | | Authenticated by: Jg Prater Report Date/Time: 05-01-2018 | | | 18:25:24 | | + + + + + | Procedure Note | + + | Boogie Mondragon Conversion - 02/06/2019 3:30 PM PDT Patient Name: Blanca Palumbo of | | : 1945 Performing Physician: Jg | | [facility] INDICATIONS------ | | -----Paroxysmal Tachycardia CONCLUSIONS 1. Left ventricular is normal in size, | | wall thickness and systolic function EF 65-70%.2. The right ventricle is normal in size | | and function.3. No significant valvular pathology.4. There is no pericardial effusion. | | FINDINGS--------ECG rhythm: Sinus rhythm.Study: A 2-dimensional transthoracic | | echocardiogram with m-mode, spectral and color flow Doppler was perfomed.Study: This was | | a technically adequate study.Left Ventricle: Overall left ventricular systolic function | | is normal with, an EF between 65 - 70 %.Left Ventricle: The left ventricle cavity size | | is normal.Left Ventricle: Left ventricular wall thickness is normal.Left Ventricle: No | | regional wall motion abnormalities.Right Ventricle: The right ventricle is normal in | | size and function.Left Atrium: The left atrium is normal in size.Right Atrium: The right | | atrium is normal in size.Aortic Valve: There is mild aortic valve sclerosis without | | stenosis.Aortic Valve: There is no evidence of aortic regurgitation.Aortic Valve: Aortic | | valve is trileaflet and is mildly thickened.Mitral Valve: There is trace mitral | | regurgitation.Tricuspid Valve: The tricuspid valve appears structurally normal.Tricuspid | | Valve: Trace tricuspid regurgitation present.Tricuspid Valve: There is no evidence of | | pulmonary hypertension.Tricuspid Valve: The right ventricular systolic pressure | | (pulmonary artery systolic pressure), as measured by Doppler, is 22.93mmHg.Pulmonic | | Valve: The pulmonic valve is normal.Pulmonic Valve: Trace pulmonic | | regurgitation.Pulmonic Valve: No significant valvular pathology.Pericardium: There is no | | pericardial effusion.Pericardium: No pleural effusion seen.IVC/Hepatic Veins: The IVC | | is normal size (1.5-2.5cm) and collapses >50% with sniff, consistent with central venous | | pressures of 5-10mmHg.Aorta: The aortic root, ascending aorta and aortic arch are | | normal in size.Septum: Mobile interatrial septum. MEASUREMENTS Ao asc: | | 2.93 cmAo Diam: 3.[address] junct: 2.75 cmIVC: 1.65 cmLA Diam: 3.26 cmLA Major: | | 3.53 cmEDV(Teich): 96.51 mlIVSd: 0.93 cmLVIDd: 4.58 cmLVPWd: 0.74 cmLVOT | | Area: 3.27 [id number] Diam: 2.04 cm%FS: 40.06 %EF(Teich): 70.78 %ESV(Teich): | | 28.19 mlLVIDs: 2.74 cmSV(Teich): 68.31 mlRA Major: 4.02 cmRV Major: 5.54 | | cmRVIDd: 1.95 cmTV Kaylah Diam: 2.67 cmAo Root: 2.74 cmAo Diam SVals: 2.97 cmLVEF | | MOD A2C: 73.05 %SV MOD A2C: 52.03 mlLVEF MOD A4C: 67.66 %SV MOD A4C: 52.94 mlEF | | Biplane: 69.26 %LVEDV MOD BP: 73.82 mlLVESV MOD BP: 22.68 mlLVEDV MOD A2C: 71.22 | | mlLVLd A2C: 6.65 cmLVEDV MOD A4C: 78.25 mlLVLd A4C: 6.73 cmLVESV MOD A2C: 19.19 | | mlLVLs A2C: 5.55 cmLVESV MOD A4C: 25.30 mlLVLs A4C: 6.04 cmLAESV(A-L): 26.51 | | mlLAESV Index (A-L): 15.96 ml/m2LAAs A2C: 11.11 [id number] A-L A2C: 25.10 mlLALs | | A2C: 4.17 cmLAAs A4C: 10.71 [id number] A-L A4C: 25.57 mlLALs A4C: 3.81 cmRAAs: | | 9.58 [id number] A-L: 20.03 mlRAESV MOD: 20.09 mlRALs: 3.89 cmTAPSE: 2.01 cmAV | | maxP.79 mmHgAV meanP.27 mmHgAV Vmax: 1.20 m/Jennifer Vmean: 0.86 m/Jennifer VTI: | | 24.91 cmAVA Vmax: 2.98 cm2AVA (VTI): 2.95 [id number] maxP.82 mmHgLVOT meanPG: | | 2.14 mmHgLVSI Dopp: 44.42 ml/m2LVSV Dopp: 73.74 mlLVOT Vmax: 1.09 m/sLVOT Vmean: | | 0.65 m/sLVOT VTI: 22.51 cmMV A Girma: 0.93 m/sMV Dec [place]: 3.37 m/s2MV DecT: | | 221.52 msMV E Girma: 0.74 m/sMV E/A Ratio: 0.79MV PHT: 64.24 msMVA By PHT: 3.42 | | so7Kwsvcr e': 0.05 m/sSeptal E/e': 12.55Lateral e': 0.04 m/sLateral E/e': | | 17.35RAP: 5 mmHgRVSP: 22.93 mmHgTR maxP.93 mmHgTR Vmax: 2.11 m/s | | Software Support Specialist: DHAuthenticated by: Jg [facility] Date/Time: 05-01-2018 18:25:24 | | IMPRESSION: 1. Left ventricular is normal in size, wall thickness and systolic function | | EF 65-70%.2. The right ventricle is normal in size and function.3. No significant | | valvular pathology.4. There is no pericardial effusion. | | | |Ao asc: 2.93 cm | |Ao Diam: 3.07 cm | |Ao st junct: 2.75 cm | |IVC: 1.65 cm | |LA Diam: 3.26 cm | |LA Major: 3.53 cm | |EDV(Teich): 96.51 ml | |IVSd: 0.93 cm | |LVIDd: 4.58 cm | |LVPWd: 0.74 cm | |LVOT Area: 3.27 cm2 | |LVOT Diam: 2.04 cm | |%FS: 40.06 % | |EF(Teich): 70.78 % | |ESV(Teich): 28.19 ml | |LVIDs: 2.74 cm | |SV(Teich): 68.31 ml | |RA Major: 4.02 cm | |RV Major: 5.54 cm | |RVIDd: 1.95 cm | |TV Kaylah Diam: 2.67 cm | |Ao Root: 2.74 cm | |Ao Diam SVals: 2.97 cm | |LVEF MOD A2C: 73.05 % | |SV MOD A2C: 52.03 ml | |LVEF MOD A4C: 67.66 % | |SV MOD A4C: 52.94 ml | |EF Biplane: 69.26 % | |LVEDV MOD BP: 73.82 ml | |LVESV MOD BP: 22.68 ml | |LVEDV MOD A2C: 71.22 ml | |LVLd A2C: 6.65 cm | |LVEDV MOD A4C: 78.25 ml | |LVLd A4C: 6.73 cm | |LVESV MOD A2C: 19.19 ml | |LVLs A2C: 5.55 cm | |LVESV MOD A4C: 25.30 ml | |LVLs A4C: 6.04 cm | |LAESV(A-L): 26.51 ml | |LAESV Index (A-L): 15.96 ml/m2 | |LAAs A2C: 11.11 cm2 | |LAESV A-L A2C: 25.10 ml | |LALs A2C: 4.17 cm | |LAAs A4C: 10.71 cm2 | |LAESV A-L A4C: 25.57 ml | |LALs A4C: 3.81 cm | |RAAs: 9.58 cm2 | |RAESV A-L: 20.03 ml | |RAESV MOD: 20.09 ml | |RALs: 3.89 cm | |TAPSE: 2.01 cm | |AV maxP.79 mmHg | |AV meanP.27 mmHg | |AV Vmax: 1.20 m/s | |AV Vmean: 0.86 m/s | |AV VTI: 24.91 cm | |ANTONIO Vmax: 2.98 cm2 | |ANTONIO (VTI): 2.95 cm2 | |LVOT maxP.82 mmHg | |LVOT meanP.14 mmHg | |LVSI Dopp: 44.42 ml/m2 | |LVSV Dopp: 73.74 ml | |LVOT Vmax: 1.09 m/s | |LVOT Vmean: 0.65 m/s | |LVOT VTI: 22.51 cm | |MV A Girma: 0.93 m/s | |MV Dec [place]: 3.37 m/s2 | |MV DecT: 221.52 ms | |MV E Girma: 0.74 m/s | |MV E/A Ratio: 0.79 | |MV PHT: 64.24 ms | |MVA By PHT: 3.42 cm2 | |Septal e': 0.05 m/s | |Septal E/e': 12.55 | |Lateral e': 0.04 m/s | |Lateral E/e': 17.35 | |RAP: 5 mmHg | |RVSP: 22.93 mmHg | |TR maxP.93 mmHg | |TR Vmax: 2.11 m/s | | | |Software Support Specialist: WALT | |Authenticated by: Jg Prater | |Report Date/Time: 05-01-2018 18:25:24 | | | |IMPRESSION: | |1. Left ventricular is normal in size, wall thickness and systolic function EF 65-70%. | |2. The right ventricle is normal in size and function. | |3. No significant valvular pathology. | |4. There is no pericardial effusion. | + + documented in this encounter Visit Diagnoses Not on filedocumented in this encounter"
--- OUTSIDE RECORDS SUMMARY | ~2019-10-27 | XMS | Encounter Summary ---
Demographics + + + | Address | [address] | | | [place] [address] | + + + | Home Phone | | + + + | Preferred Language | Unknown | + + + | Marital Status | | + + + | Anabaptist Affiliation | Unknown | + + + | Race | Unknown | + + + | Ethnic Group | Unknown | + + + Author + + + | Author | [facility] | | | and [place] | + + + | Organization | [facility] | | | and [place] | + + + | Address | Unknown | + + + | Phone | Unavailable | + + + Support + + + + + | Name | Relationship | Address | Phone | + + + + + | Prasanna Palumbo | ECON | [address] | | | | | [place] | | | | | [address] | | + + + + + Care Team Providers + +------+ + | Care Shop Lead Name | Role | Phone | + +------+ + PCP | Unavailable | + +------+ + Encounter Details +--------+ + + + + | Date | Type | Department | Care Team | Description | +--------+ + + + + | 11/14/ | Hospital | [facility] | | | | 1999 | Encounter | MED [facility] GENERIC OP | | | | | | CONV DEPT [address] | | | | | | [place], | | | | | | [place] [address] | | | | | | [phone] | | | +--------+ + + + [...]
--- OUTSIDE RECORDS SUMMARY | ~2019-10-27 | XMS | Encounter Summary ---
Demographics + + + | Address | [address] | | | [place] [address] | + + + | Home Phone | | + + + | Preferred Language | Unknown | + + + | Marital Status | | + + + | Synagogue Affiliation | Unknown | + + + | Race | Unknown | + + + | Ethnic Group | Unknown | + + + Author + + + | Author | [facility] | | | and [place] | + + + | Organization | [facility] | | | and [place] | + + + | Address | Unknown | + + + | Phone | Unavailable | + + + Support + + + + + | Name | Relationship | Address | Phone | + + + + + | Prasanna Palumbo | ECON | [address] | | | | | [place] | | | | | [address] | | + + + + + Care Team Providers + +------+ + | Care President Financial Institution Name | Role | Phone | + +------+ + PCP | Unavailable | + +------+ + Encounter Details +--------+ + + + + | Date | Type | Department | Care Team | Description | +--------+ + + + + | 11/14/ | Hospital | [facility] | | | | 1999 | Encounter | MED CTR GENERIC OP | | | | | | CONV DEPT [address] | | | | | | [place], | | | | | | [place] [address] | | | | | | [phone] | | | +--------+ + + + [...]
--- OUTSIDE RECORDS SUMMARY | ~2019-10-27 | XMS | Clinical Summary ---
Demographics + + + | Address | [address] | | | [place] [address] | + + + | Home Phone | | + + + | Preferred Language | Unknown | + + + | Marital Status | | + + + | Confucianism Affiliation | Unknown | + + + [...] + | Prasanna Palumbo | ECON | [address] | | | | | [place] | | | | | [address] | | + + + + + Care Team Providers + +------+ + | Care [place] Administrator Name | Role | Phone | + [...] + +--------+ | MEDICARE | MEDICA | [id number] | 08/17/19 | [phone] | | Medica | | | RE | | 10-Pre | 5 | | re | | | PART A | | sent | | | | | | AND B | | | | | | + +--------+ +--------+ + +--------+ | MODA | MODA | [id number] | 06/18/19 | [phone] | [address] | Indemn | | | HEALTH | | 19-Pre | 9 | [address] | ity | | | MDCR | | sent | | [place], | | | | [place] | | | | [place] [address] | | + +--------+ +--------+ + +--------+ + +--------+ +--------+ + + | Guarantor Name | Accoun | Relation to | Date | Phone | Billing Address | | | t Type | Patient | of | | | | | | | | | | + +--------+ +--------+ + + | Jerilyn Palumbo | Person | Self [birth year] | [address] | | | al/Fam | | 1946 | [phone] | [place] | | | ezekiel | | | 2 (Home) | [address] | + +--------+ +--------+ + + Advance Directives + + + + + | Type | Date Recorded | Patient | Explanation | | | | Operations Liaison | | + + + + + | Power of | | | | | 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
--- OUTSIDE RECORDS SUMMARY | ~2019-10-27 | XMS | Encounter Summary ---
Demographics + + + | Address | [address] | | | [place] [address] | + + + | Home Phone | | + + + | Preferred Language | Unknown | + + + | Marital Status | | + + + | Yazdanism Affiliation | Unknown | + + + | Race | Unknown | + + + | Ethnic Group | Unknown | + + + Author + + + | Author | [facility] | | | and [place] | + + + | Organization | [facility] | | | and [place] | + + + | Address | Unknown | + + + | Phone | Unavailable | + + + Support + + + + + | Name | Relationship | Address | Phone | + + + + + | Prasanna Palumbo | ECON | [address] | | | | | [place] | | | | | [address] | | + + + + + Care Team Providers + +------+ + | Care Experience Planning Strategist Name | Role | Phone | [...] Provider Unknown | | | | | [place], [place] | [phone] | | | | | [address] | | | | | | [phone] | | | +--------+ + + + [...]
--- OUTSIDE RECORDS SUMMARY | ~2019-10-27 | XMS | Encounter Summary ---
Demographics + + + | Address | [address] | | | [place] [address] | + + + | Home Phone | | + + + | Preferred Language | Unknown | + + + | Marital Status | | + + + | Christianity Affiliation | Unknown | + + + | Race | Unknown | + + + | Ethnic Group | Unknown | + + + Author + + + | Author | [facility] | | | and [place] | + + + | Organization | [facility] | | | and [place] | + + + | Address | Unknown | + + + | Phone | Unavailable | + + + Support + + + + + | Name | Relationship | Address | Phone | + + + + + | Prasanna Palumbo | ECON | [address] | | | | | [place] | | | | | [address] | | + + + + + Care Team Providers + +------+ + | Care Electrical Technician Instructor Name | Role | Phone | + [...] | [address] | [place], [place] | | | | | [place], [place] | [address] | | | | | [address] | | | | | | [phone] | | | +--------+ + + + [...] MV A Girma: 0.93 m/s MV Dec [place]: | | | 3.37 m/s2 MV DecT: [...] | 17.93 mmHg TR Vmax: 2.11 m/s Marketing Planner: WALT | | | Authenticated by: Jg Prater Report Date/Time: 05-01-2018 | | | 18:25:24 | | + + + + + | Procedure Note | + + | Boogie Mondragon Conversion - 02/06/2019 3:30 PM PDT Patient Name: Blanca Palumbo of | | : 1945 Performing Physician: Jg | | [facility] INDICATIONS------ | | -----Paroxysmal Tachycardia CONCLUSIONS [...] cmLVPWd: 0.74 cmLVOT | | Area: 3.27 pb2USUF Diam: 2.04 cm%FS: 40.06 %EF(Teich): 70.78 %ESV(Teich): [...] mlLAESV Index (A-L): 15.96 ml/m2LAAs A2C: 11.11 [id number] A-L A2C: 25.10 mlLALs | | A2C: 4.17 cmLAAs A4C: 10.71 [id number] A-L A4C: 25.57 mlLALs A4C: 3.81 cmRAAs: | | 9.58 [id number] A-L: 20.03 mlRAESV MOD: 20.09 mlRALs: 3.89 cmTAPSE: 2.01 cmAV | | maxP.79 mmHgAV meanP.27 mmHgAV Vmax: 1.20 m/Jennifer Vmean: 0.86 m/Jennifer VTI: | | 24.91 cmAVA Vmax: 2.98 cm2AVA (VTI): 2.95 [id number] maxP.82 mmHgLVOT meanPG: | | 2.14 mmHgLVSI Dopp: 44.42 ml/m2LVSV Dopp: 73.74 mlLVOT Vmax: 1.09 m/sLVOT Vmean: | | 0.65 m/sLVOT VTI: 22.51 cmMV A Girma: 0.93 m/sMV Dec [place]: 3.37 m/s2MV DecT: | | 221.52 msMV E Girma: 0.74 m/sMV E/A Ratio: 0.79MV PHT: 64.24 msMVA By PHT: 3.42 | | [id number] e': 0.05 m/sSeptal E/e': 12.55Lateral e': 0.04 m/sLateral E/e': | | 17.35RAP: 5 mmHgRVSP: 22.93 mmHgTR maxP.93 mmHgTR Vmax: 2.11 m/s | | Marketing Planner: DHAuthenticated by: Jg [facility] Date/Time: 05-01-2018 18:25:24 | | IMPRESSION: 1. [...] A Girma: 0.93 m/s | |MV Dec [place]: 3.37 m/s2 | |MV DecT: 221.52 ms [...] |TR Vmax: 2.11 m/s | | | |Marketing Planner: WALT | |Authenticated by: Jg Prater | [...]
[~2019-10-27 19:00] MED LIST: IBANDRONATE SO150 MG PO; LEVOTHYROXINE75 MCG PO; LISINOPRIL20 MG PO; MECLIZINE HCL25 MG PO; PREMPRO 0.3 MG1 EACH PO
[2019-10-27] MEDS ORDERED: CENTRUM SILVER1 EAC3 PO (19:16)
--- NOTE | 2019-10-28 13:10 | EKG ---
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
== END 2019-10-27 21:17 | disposition home or self-care (01) ==
LOC: ED 19:00
DX: R55 Syncope and collapse (principal); I25.2 Old myocardial infarction; Z88.8 Allergy status to other drugs, medicaments and biological substances; Z79.899 Other long term (current) drug therapy
CPT/HCPCS: 71045; 80053; 81001; 83735; 84484; 85025; 93005; 93010; 96360; 99285-25; J7030